=== PATIENT | male | born 1980 | race Caucasian/White ===

== ENCOUNTER 2017-12-11 16:22 | Emergency (ER) | payer OTHER ==
[~2017-12-11] VITALS: Ht 180.3 cm; Wt 113.4 kg
[2017-12-11] MEDS ORDERED: AUGMENTIN 875-1 EACH PO (17:22)
[2017-12-11 17:33] VITALS: BP 137/91
== END 2017-12-11 17:34 | disposition home or self-care (01) ==
LOC: M.ERS 16:22
DX: S61.032A Puncture wound without foreign body of left thumb without damage to nail, initial encounter (principal); W29.4XXA Contact with nail gun, initial encounter; Y93.89 Activity, other specified; Y92.89 Other specified places as the place of occurrence of the external cause; Y99.8 Other external cause status

== ENCOUNTER 2018-09-09 10:43 | Emergency (ER) | payer OTHER ==
[~2018-09-09] VITALS: Ht 180.3 cm; Wt 113.4 kg
[~2018-09-09 10:43] MED LIST: AUGMENTIN 875-1 EACH PO
[2018-09-09 12:09] VITALS: BP 143/92
== END 2018-09-09 12:10 | disposition home or self-care (01) ==
LOC: M.ERS 10:43
DX: S61.211A Laceration without foreign body of left index finger without damage to nail, initial encounter (principal); Z90.49 Acquired absence of other specified parts of digestive tract; W26.8XXA Contact with other sharp object(s), not elsewhere classified, initial encounter; Y93.89 Activity, other specified; Y92.89 Other specified places as the place of occurrence of the external cause; Y99.8 Other external cause status

== ENCOUNTER 2018-09-19 09:18 | Emergency (ER) | payer OTHER ==
[~2018-09-19] VITALS: Ht 180.3 cm; Wt 113.4 kg
[2018-09-19 09:24] VITALS: BP 147/94
== END 2018-09-19 09:39 | disposition home or self-care (01) ==
LOC: M.ERS 09:18
DX: S61.211D Laceration without foreign body of left index finger without damage to nail, subsequent encounter (principal); Z90.49 Acquired absence of other specified parts of digestive tract; X58.XXXD Exposure to other specified factors, subsequent encounter